=== PATIENT | female | born 1960 | race Caucasian/White ===

== ENCOUNTER → 2022-08-07 | Outpatient (CLI) | payer OTHER ==
[~2022-08-07] MED LIST: CALCIUM 500+D1 EACH PO; LEVAQUIN500 MG PO; LEVOCETIRIZINE D5 MG PO; NORCO 7.5-3251 EACH PO; PANTOPRAZOLE SO40 MG PO; SYNTHROID175 MCG PO
== END ==
LOC: NM 07:03
PROVIDERS: ATTEND Family Medicine
DX: E07.9 Disorder of thyroid, unspecified (principal)
CPT/HCPCS: 78014; A9516

== ENCOUNTER → 2022-08-26 | Outpatient (CLI) | payer OTHER ==
[~2022-08-26] MED LIST changes: +LIDOCAINE HCL 1% 2 ML AMP ONE; +LIDOCAINE HCL 1% LOCAL INJ 20 ML VIAL ONE
== END ==
LOC: US 12:08
PROVIDERS: ATTEND Internal Medicine
DX: E04.2 Nontoxic multinodular goiter (principal)
CPT/HCPCS: 76536; J2001; 10005

== ENCOUNTER → 2023-07-24 | Outpatient (REF) | payer BC ==
[~2023-07-24] MED LIST changes: -LIDOCAINE HCL 1% 2 ML AMP ONE; -LIDOCAINE HCL 1% LOCAL INJ 20 ML VIAL ONE
== END ==
LOC: US 07:40
PROVIDERS: ATTEND Internal Medicine
DX: E04.2 Nontoxic multinodular goiter (principal)
CPT/HCPCS: 76536